=== PATIENT | male | born 1955 | race Caucasian/White ===

== ENCOUNTER 2017-02-10 12:38 | Inpatient (IN) | payer OTHER ==
[~2017-02-10] VITALS: Ht 177.8 cm; Wt 130.8 kg
[2017-02-10] MEDS ORDERED: PROSTATE PO (12:44)
[2017-02-10 13:05] LABS: BASOPHILS % (AUTO) 0.4 % (0.0-2.0); HEMATOCRIT 46.4 % (41-53); HEMOGLOBIN 15.3 g/dL (13.5-17.5); LYMPHOCYTES # (AUTO) 3.4 K/uL (1.0-4.8); LYMPHOCYTES % (AUTO) 37.3 % (22.0-44.0); MEAN CORPUSCULAR HGB CONC 32.9 G/dL (31.0-37.0); MEAN CORPUSCULAR VOLUME 94 fL (80-100); MONOCYTES # (AUTO) 0.7 K/uL (0.1-1.0); MONOCYTES % (AUTO) 7.3 % (2.0-9.0); NEUTROPHILS # (AUTO) 4.8 K/uL (1.8-7.7); PLATELET COUNT (AUTO) 207 K/uL (150-450); RED BLOOD CELL COUNT(AUTO) 4.92 MIL/uL (4.50-5.90); RED CELL DISTRIBUTION WIDTH 14.6 % (11.5-14.5); WHITE BLOOD COUNT (AUTO) 9.3 K/uL (4.5-11.0)
[2017-02-10 13:15] LABS: ANION GAP 7 mmol/L (8-16); CALCIUM, TOTAL 9.1 mg/dL (8.8-10.5); CARBON DIOXIDE 29 mmol/L (22-29); CHLORIDE 102 mmol/L (98-107); CREATININE 1.15 mg/dL (0.60-1.30); GLOMERULAR FILTR. RATE CALC > 60 mL/min (>60); POTASSIUM 3.8 mmol/L (3.5-5.1); SODIUM SERUM 138 mmol/L (136-145); UREA NITROGEN, BLOOD 19 mg/dL (7-18)
[2017-02-10 13:18] LABS: PROTHROMBIN TIME 10.3 SEC (9.4-11.6)
[2017-02-10 13:34] LABS: B-TYPE NATRIURETIC PEPTIDE 5 pg/mL (0-100)
[2017-02-10 13:40] LABS: ALANINE AMINOTRANSFERASE 35 U/L (12-78); ALBUMIN 3.9 g/dL (3.4-5.0); ASPARTATE AMINOTRANSFERASE 20 U/L (15-37); BILIRUBIN,TOTAL 0.4 mg/dL (0.1-1.0); CREATINE KINASE MB 0.5 ng/mL (0-5); CREATINE KINASE, TOTAL 138 U/L (39-308); TOTAL PROTEIN, SERUM 7.3 g/dL (6.4-8.2)
[2017-02-10 14:15] LABS: APPEARANCE,URINE CLEAR (CLEAR); GLUCOSE, URINE (UA) NEGATIVE (NEGATIVE); KETONES,URINE NEGATIVE (NEGATIVE); LEUKOCYTE ESTERASE ,URINE NEGATIVE (NEGATIVE); OCCULT BLOOD,URINE NEGATIVE (NEGATIVE); PROTEIN,URINE NEGATIVE (NEGATIVE)
[2017-02-10 14:43] LABS: ADD UA MICROSCOPIC NO
[2017-02-10] MEDS ORDERED: MECLIZINE HCL 25 MG TABLET PO ONE (16:00)
[2017-02-10] MEDS ORDERED: SODIUM CHLORIDE 0.9% 1,000 ML IV ONE (16:00)
[2017-02-10] MEDS ORDERED: ZOLPIDEM TARTRATE 5 MG TABLET PO PRN (16:15)
[2017-02-10] MEDS ORDERED: MORPHINE SULFATE 2 MG/ML SYRINGE IVP PRN (16:15)
[2017-02-10] MEDS ORDERED: HYDROCODONE/ACETAMINOPHEN 5-325 MG TABLET PO PRN (16:15)
[2017-02-10] MEDS ORDERED: BISACODYL 10 MG RECTAL RECTAL SUPPOSITORY PR PRN (16:15)
[2017-02-10] MEDS ORDERED: ACETAMINOPHEN 325 MG TABLET PO PRN (16:15)
[2017-02-10] MEDS ORDERED: ONDANSETRON HCL 4 MG/2 ML VIAL IVP PRN (16:15)
[2017-02-10] MEDS ORDERED: ASPIRIN 81 MG CHEWABLE TABLET PO ONE (16:15)
[2017-02-10] MEDS ORDERED: MAGNESIUM HYDROXIDE SUSPENSION 30 ML UDCUP PO PRN (16:15)
[2017-02-10] MEDS ORDERED: GADOBUTROL 1 MMOL/ML 10 ML VIAL IVP ONE (17:31)
[2017-02-10 17:36] VITALS: BP 153/92
[2017-02-10] MEDS ORDERED: PNEUMOCOCCAL VACCINE POLYVALENT 0.5 ML VIAL [PPSV23] IM ONE (19:15)
[2017-02-10] MEDS ORDERED: INSULIN ASPART 100 UNITS/ML SQ PRN (19:45)
[2017-02-10] MEDS ORDERED: DEXTROSE 50%-WATER 25 GM/50 ML SYRINGE IVP PRN (19:45)
[2017-02-10 20:00] VITALS: BP 125/61
[2017-02-10] MEDS: DOCUSATE SODIUM 100 MG CAPSULE PO SCH (20:29)
[2017-02-10] MEDS ORDERED: ATORVASTATIN CALCIUM 20 MG TABLET PO SCH (21:00)
[2017-02-10] MEDS: HEPARIN SODIUM,PORCINE 5,000 UNITS/ML VIAL SQ SCH (23:27)
[2017-02-10 23:40] VITALS: BP 128/64
[2017-02-11 05:07] VITALS: BP 124/70
[2017-02-11 07:20] LABS: CHOL/HDL RATIO 3.7 (4.2-7.3); THYROID STIMULATING HORMONE 1.99 uIU/mL (0.36-3.74)
[2017-02-11 07:31] VITALS: BP 122/71
[2017-02-11] MEDS ORDERED: PANTOPRAZOLE SODIUM 40 MG DR TABLET PO SCH (09:00)
[2017-02-11] MEDS: DOCUSATE SODIUM 100 MG CAPSULE PO SCH (10:11)
[2017-02-11] MEDS: HEPARIN SODIUM,PORCINE 5,000 UNITS/ML VIAL SQ SCH (10:11)
[2017-02-11 12:07] VITALS: BP 129/73
[2017-02-11] MEDS ORDERED: ATOR20TA86 PO (14:20)
[2017-02-11] MEDS ORDERED: MECL-111 PO (14:23)
[2017-02-12 08:57] LABS: GLUCOSE,POINT OF CARE 109 MG/DL (70-110)
[2017-02-12 08:57] LABS: GLUCOSE,POINT OF CARE 105 MG/DL (70-110)
[2017-02-12 08:57] LABS: GLUCOSE,POINT OF CARE 105 MG/DL (70-110)
== END 2017-02-11 15:10 | disposition home or self-care (01) | DRG 204 ==
LOC: EMS 12:40 → 5N 16:02 → UNDOADMIN 16:19
PROVIDERS: ADMIT Internal Medicine; ATTEND Internal Medicine
DX: R55 Syncope and collapse (principal); I67.2 Cerebral atherosclerosis; Z68.41 Body mass index [BMI] 40.0-44.9, adult; I10 Essential (primary) hypertension; E11.9 Type 2 diabetes mellitus without complications; N40.0 Benign prostatic hyperplasia without lower urinary tract symptoms; Z53.29 Procedure and treatment not carried out because of patient's decision for other reasons; F17.210 Nicotine dependence, cigarettes, uncomplicated; H93.12 Tinnitus, left ear; M19.90 Unspecified osteoarthritis, unspecified site; I44.0 Atrioventricular block, first degree; Z79.899 Other long term (current) drug therapy; E66.9 Obesity, unspecified
CPT/HCPCS: 70450; 70553; 82607; 82746; 82962; 84443; 93005; 93880; 96360; 99285; A9585; J1644; J7030

== ENCOUNTER 2018-06-16 19:34 | Emergency (ER) | payer OTHER ==
[~2018-06-16] VITALS: Ht 177.8 cm; Wt 130.8 kg
[~2018-06-16 19:34] MED LIST: ATOR20TA86 PO; MECL-111 PO
[2018-06-16] MEDS ORDERED: TAMS0.4C32 PO (19:50)
[2018-06-16 20:29] VITALS: BP 149/87
== END 2018-06-16 20:55 | disposition home or self-care (01) ==
LOC: EMS 19:35
DX: K08.89 Other specified disorders of teeth and supporting structures (principal); I10 Essential (primary) hypertension; F17.210 Nicotine dependence, cigarettes, uncomplicated; Z88.0 Allergy status to penicillin; Z79.899 Other long term (current) drug therapy
CPT/HCPCS: 99283

== ENCOUNTER 2018-06-23 10:41 | Emergency (ER) | payer OTHER ==
[~2018-06-23] VITALS: Ht 175.3 cm; Wt 118.1 kg
[~2018-06-23 10:41] MED LIST changes: -MECL-111 PO; +TAMS0.4C32 PO
[2018-06-23 15:02] VITALS: BP 149/84
== END 2018-06-23 15:12 | disposition home or self-care (01) ==
LOC: EDUNIT# 10:41 → EMS 10:42
DX: K04.7 Periapical abscess without sinus (principal); K01.1 Impacted teeth; I10 Essential (primary) hypertension; F17.210 Nicotine dependence, cigarettes, uncomplicated; Z88.0 Allergy status to penicillin; Z79.899 Other long term (current) drug therapy
CPT/HCPCS: 70486; 99284

== ENCOUNTER 2021-12-18 20:26 | Emergency (ER) | payer MEDICARE, MEDICAID ==
[~2021-12-18] VITALS: Ht 177.8 cm; Wt 117.3 kg
[~2021-12-18 20:26] MED LIST changes: +TAMS-13 PO; -TAMS0.4C32 PO
[2021-12-18] MEDS ORDERED: APRE30TA2 PO (20:45)
[2021-12-18] MEDS ORDERED: METO25 PO (20:45)
[2021-12-18 21:58] LABS: APPEARANCE,URINE CLEAR (CLEAR); BILIRUBIN,URINE NEGATIVE (NEGATIVE); GLUCOSE, URINE (UA) NEGATIVE (NEGATIVE); KETONES,URINE NEGATIVE (NEGATIVE); LEUKOCYTE ESTERASE ,URINE NEGATIVE (NEGATIVE); NITRATE,URINE NEGATIVE (NEGATIVE); OCCULT BLOOD,URINE SMALL (NEGATIVE); PH,URINE 5.5 (5.0-8.0); PROTEIN,URINE NEGATIVE (NEGATIVE); UROBILINOGEN,URINE <=1.0 mg/dL (<=1.0)
[2021-12-18 22:14] LABS: BACTERIA,URINE None Seen /HPF (None Seen); WBC,URINE 0-2 /HPF (0-5)
[2021-12-19 00:02] VITALS: BP 147/98
== END 2021-12-19 00:04 | disposition home or self-care (01) ==
LOC: EMS 20:28
DX: R33.9 Retention of urine, unspecified (principal); N20.9 Urinary calculus, unspecified; I10 Essential (primary) hypertension; F17.210 Nicotine dependence, cigarettes, uncomplicated; Z88.0 Allergy status to penicillin; Z79.899 Other long term (current) drug therapy
CPT/HCPCS: 51702; 74176; 81001; 81003; 99284